=== PATIENT | female | born 1985 | race American Indian/Alaskan Native ===

== ENCOUNTER 2017-06-27 15:28 | Inpatient (IN) | payer MEDICAID ==
[2017-06-27 16:42] LABS: Hematocrit 36.6 % (30.3-42.9); Mean Corpuscular HGB Conc 33 % (30-34); Mean Corpuscular Hemoglobin 30 pg (28-32); Mean Corpuscular Volume 92 fl (79-97); Platelet Count 137 K/mm3 (140-440); Red Cell Distribution Width 13.8 % (13.2-15.2); White Blood Count 9.7 K/mm3 (4.5-11.0)
[2017-06-27] MEDS ORDERED: LACTATED RINGERS 1,000 ML IV SCH (17:00)
[2017-06-27 17:04] LABS: Alanine Aminotransferase 10 units/L (7-56); Lactate Dehydrogenase 221 units/L (91-180)
--- NOTE | 2017-06-27 18:16 | History and Physical Report ---
<SIDDHARTHLARRY L - Last Filed: 06/27/17 19:02> History of Present Illness Date of examination: 06/27/17 Chief complaint: elevated blood pressure and contractions, sent from office. History of present illness: EDC Calculations by LMP: 07/05/2017 Past History : 4 Term Births: 3 Premature Births: 0 Living Children: 3 Para: 3 Mult. Births: 0 Prev : 0 Prev. attempt? 0 Aborta: 0 Elect. Ab: 0 Spont. Ab: 0 Ectopics: 0 # 1 Delivery date: 09/03/2004 Weeks Gestation: 38 labor: no Delivery type: Hours of labor: 9 Anesthesia type: epidural Delivery location: [facility] Infant Sex: Female weight: 5-0 Name: Vivi # 2 Delivery date: 08/15/2006 Weeks Gestation: 39 labor: no Delivery type: Hours of labor: 10 Anesthesia type: none Delivery location: [facility] Infant Sex: Male weight: 6-3 Name: Manjinder # 3 Delivery date: 06/27/2008 Weeks Gestation: 40 labor: no Delivery type: Hours of labor: 6 Anesthesia type: none Delivery location: [facility] Sex: Male weight: 8-6 Name: Garrett Comments: induction of labor elevated BP Past Medical History: Negative Past Medical History Past Surgical History: Negative Past Surgical History Family History Summary: Other family member - Has No Family History of Ovarvian Cancer - Entered On: 12/20 Other family member - Has No Family History of Colon Cancer - Entered On: 2016 Other family member - Has No Family History of Breast Cancer - Entered On: 2016 Other family member - Has Family History of Hypertension - Entered On: 12/20/2016 Other family member - Has Family History of Diabetes - Entered On: 12/20/2016 Social History: Daycare Worker Patient is Risk Factors: Smoked Tobacco Use: Never smoker Drug use: no HIV high-risk behavior: low risk Alcohol use: yes Drinks per day: social Dietary Counseling: pn yes Past Medical History 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 of genital herpes: no Partner hx. of genital herpes: no Genetic History Congenital Heart Defect: Mom: no Dad: no Janeen Disease: Mom: no Dad: no Thalassemia Mom: no Dad: no Neural Tube Defect Mom: no Dad: no Down's Syndrome Mom: no Dad: no Kwasi-Sachs Mom: no Dad: no Sickle Cell Disease/Trait Mom: no Dad: no Hemophilia Mom: no Dad: no Muscular Dystrophy Mom: no Dad: no Cystic Fibrosis Mom: no Dad: no Ori Chorea Mom: no Dad: no Mental Retardation Mom: no Dad: no Fragile X Mom: no Dad: no Other Genetic/Chromosomal Disorder Mom: no Dad: no Child w/other defect Mom: no Dad: no Enviromental Exposures Xray Exposure: no Medication, drug, or alcohol use since LMP: no Chemical/Other Exposure: no Exposure to Cat Liter: no Hx of Parvovirus (Fifth Disease): no Occupational Exposure to Children: daycare Current Allergies: No known allergies Past History - Obstetrical History Expected Date of Delivery: 07/05/17 Actual Gestation: 38 Week(s) 6 Day(s) : 4 Para: 3 Hx # Term Pregnancies: 3 Number of Pregnancies: 0 Spontaneous Abortions: 0 Induced : 0 Number of Living Children: 3 Medications and Allergies Allergies Allergy/AdvReac Type Severity Reaction Status Date / Time No Known Allergies Allergy Unverified 06/27/17 16:02 Active Meds: Active Medications Lactated Ringer's (Lactated Ringers) 1,000 mls @ 125 mls/hr IV DIRECT MEAGHAN Review of Systems All systems: negative - Vital Signs Vital signs: Vital Signs Temp Pulse Resp BP Pulse Ox 98.2 F 72 20 160/93 98 06/27/17 16:44 06/27/17 16:44 06/27/17 16:44 06/27/17 16:44 06/27/17 16:44 Temp Pulse Resp BP Pulse Ox 98.2 F 71 20 161/91 92 06/27/17 16:44 06/27/17 18:00 06/27/17 16:44 06/27/17 17:57 06/27/17 18:00 - Physical Exam Breasts: Positive: normal Cardiovascular: Regular rate Lungs: Positive: Clear to auscultation, Normal air movement Abdomen: Positive: normal appearance, soft Genitourinary (Female): Positive: normal external genitalia, normal perenium Vulva: both: normal Vagina: Positive: normal moisture Uterus: Positive: normal size Adnexa: both: normal Anus/Rectum: Positive: normal perianal skin Extremities: Positive: normal Deep Tendon Reflex Grade: Normal +2 - Obstetrical FHR: auscultation normal, category 1 Uterine Contraction Monitor Mode: External Cervical Dilatation: 0.5 Cervical Effacement Percentage: 70 station: -4 Uterine Contraction Pattern: Irregular Uterine Tone Measurement Phase: Contraction Uterine Contraction Intensity: Mild Results Result Diagrams: 06/27/17 16:24 06/27/17 16:24 Abnormal lab results 06/27/17 06/27/17 Range/Units 16:24 16:24 Plt Count 137 L (140-440) K/mm3 Creatinine 0.5 L (0.7-1.2) mg/dL Lactate Dehydrogenase 221 H (91-180) units/L All other labs normal. Assessment and Plan 32 y/o @ 38+6 weeks, admitted for pre-e IOL. complicated by + AFP for DS, NIPT negative. GBS +, will treat when in labor. u/s ordered to confirm vertex. Dr. Murphy consulted. plan for cervical ripening tonight. plan discussed with patient and spouse and both verbalize understanding of plan. All questions addressed. - Patient Problems (1) 38 weeks gestation of Current Visit: Yes Status: Acute (2) GBS (group B Streptococcus carrier), +RV culture, currently Current Visit: Yes Status: Acute (3) Pre-eclampsia Onset Date: 06/27/17 Current Visit: Yes Status: Acute QualifierTitle: Trimester: third trimester Qualified Code(s): O14.93 - Unspecified pre-eclampsia, third trimester <BRICE MURPHY - Last Filed: 06/27/17 20:31> History of Present Illness Date of admission: 06/27/17 19:57 Medications and Allergies Active Meds: Active Medications Butorphanol Tartrate (Stadol) 2 mg IV Q2H PRN PRN Reason: Pain , Severe (7-10) Fentanyl (Sublimaze) 100 mcg IV Q2H PRN PRN Reason: Labor Pain Hydralazine HCl (Apresoline) 10 mg IV Q30MIN PRN PRN Reason: b/p >160/100 Ampicillin Sodium (Polycillin/Ns 2 Gm/100 Ml) 2 gm in 100 mls @ 100 mls/hr IV ONCE ONE PRN Reason: Protocol Stop: 06/27/17 20:29 Ampicillin Sodium (Polycillin/Ns 1 Gm/50 Ml) 1 gm in 50 mls @ 100 mls/hr IV Q4H MEAGHAN PRN Reason: Protocol Lactated Ringer's (Lactated Ringers) 1,000 mls @ 125 mls/hr IV DIRECT MEAGHAN Oxytocin/Sodium Chloride (Pitocin/Ns 20 Unit/1000ml Drip) 20 units in 1,000 mls @ 125 mls/hr IV DIRECT MEAGHAN Mineral Oil (Mineral Oil) 30 ml PO QHS PRN PRN Reason: Constipation Ondansetron HCl (Zofran) 4 mg IV Q8H PRN PRN Reason: Nausea And Vomiting Zolpidem Tartrate (Ambien) 10 mg PO QHS PRN PRN Reason: Insomnia - Vital Signs Vital signs: Vital Signs Temp Pulse Resp BP Pulse Ox 98.2 F 72 20 160/93 98 06/27/17 16:44 06/27/17 16:44 06/27/17 16:44 06/27/17 16:44 06/27/17 16:44 Temp Pulse Resp BP Pulse Ox 98.2 F 79 20 153/103 100 06/27/17 16:44 06/27/17 19:59 06/27/17 16:44 06/27/17 19:51 06/27/17 19:59 Results Result Diagrams: 06/27/17 16:24 06/27/17 16:24 Abnormal lab results 06/27/17 06/27/17 Range/Units 16:24 16:24 Plt Count 137 L (140-440) K/mm3 Creatinine 0.5 L (0.7-1.2) mg/dL Lactate Dehydrogenase 221 H (91-180) units/L All other labs normal. Assessment and Plan - Patient Problems (1) 38 weeks gestation of Current Visit: Yes Status: Acute (2) GBS (group B Streptococcus carrier), +RV culture, currently Current Visit: Yes Status: Acute (3) Pre-eclampsia Onset Date: 06/27/17 Current Visit: Yes Status: Acute Qualifiers: Trimester: third trimester Qualified Code(s): O14.93 - Unspecified pre- eclampsia, third trimester Plan to address problem: Preeclampsia, treatment, MgSo4 prophylaxis with risks discussed, serial induction explained. She voiced understanding and agrees with plan of care.
[2017-06-27 18:36] LABS: Bilirubin,Urine NEG (Negative); Blood,Urine NEG (Negative); Ketones,Urine NEG (Negative); Leukocyte Esterase,Urine NEG (Negative); Mucus,Urine FEW /HPF; Nitrite,Urine NEG (Negative); Protein,Urine <15 mg/dL mg/dL (Negative); Urobilinogen,Urine < 2.0 mg/dL (<2.0); WBC,Urine < 1.0 /HPF (0.0-6.0)
[2017-06-27] MEDS ORDERED: MINERAL OIL PO PRN (18:43)
[2017-06-27] MEDS ORDERED: ZOFRAN IV PRN (18:43)
[2017-06-27] MEDS ORDERED: AMBIEN PO PRN (18:46)
[2017-06-27] MEDS ORDERED: BRETHINE SUB-Q PRN (18:49)
[2017-06-27] MEDS ORDERED: ePHEDrine SULFATE IV PRN (18:49)
[2017-06-27] MEDS ORDERED: PITOCin/NS 20 UNIT/1000ML DRIP 20 UNITS/1,000 ML BAG IV SCH (19:00)
[2017-06-27] MEDS ORDERED: XYLOCAINE 2% INFILTRATI ONE (19:00)
[2017-06-27] MEDS ORDERED: POLYCILLIN/NS 2 GM/100 ML 2 GM/100 ML BAG IV ONE (19:30)
[2017-06-27] MEDS: LACTATED RINGERS 1,000 ML IV SCH (20:00)
[2017-06-27] MEDS: APRESOLINE IV PRN (20:41)
[2017-06-27] MEDS ORDERED: PITOCin/NS 30 UNIT/500ML 30 UNITS/500 ML BAG IV SCH (22:00)
[2017-06-27] MEDS ORDERED: POLYCILLIN/NS 1 GM/50 ML 1 GM/50 ML BAG IV SCH (22:44)
[2017-06-28] MEDS: APRESOLINE IV PRN ×2 (00:43→05:42)
[2017-06-28] MEDS ORDERED: TYLENOL PO ONE (03:59)
[2017-06-28] MEDS: STADOL IV PRN ×2 (06:03→09:46)
[2017-06-28] MEDS: LACTATED RINGERS 1,000 ML IV SCH (09:45)
--- NOTE | 2017-06-28 09:46 | Ultrasound Report ---
Gestation: Single Position: Cephalic Amniotic Fluid: ALONSO = cm Placenta: Anterior Placental Grade: 1 Heart Rate: 150 BPM
--- NOTE | 2017-06-28 09:49 | Event Note ---
Date: 06/28/17 32 yo now at 39w and 0 d and currently undergoing induction for poss PreE. Bps are ok, not on Mag at present. Having a good bit of pain despite contractions not picking up on monitor.. Attempted AROM--no fluid but large cx change--now tight 3cm, 90%,-2. Will start Amp now for +GBS and get epidural. Anticipate vag del today, EFW 7#.
[2017-06-28] MEDS ORDERED: POLYCILLIN/NS 2 GM/100 ML 2 GM/100 ML BAG IV ONE (09:55)
[2017-06-28] MEDS: SUBLIMAZE IV PRN ×2 (10:31→11:41)
[2017-06-28] MEDS ORDERED: fentaNYL-BUPIV 2 MCG/ML-0.125% 0 MCG/0 ML BAG EPIDURAL ONE (10:52)
--- NOTE | 2017-06-28 12:04 | Procedure Note ---
OB Delivery Note - Delivery Date of Delivery: 06/28/17 Surgeon: WHITLEY FUNEZ Project Executive: WHITLEY FUNEZ Estimated blood loss: 200cc - Vaginal Delivery presentation: vertex Delivery position: OA Intrapartum events: gestational hypertension Delivery induction: oxytocin Delivery augmentation: rupture of membranes Delivery monitor: external FHT, external uterine Route of delivery: Delivery placenta: spontaneous Delivery cord: 3 umbilical vessels Episiotomy: none Delivery laceration: none Anesthesia: intravenous - A at 1 minute: 8 at 5 minutes: 9 Infant Gender: Male (6#)
[2017-06-28] MEDS ORDERED: TUCKS PAD TP PRN (12:30)
[2017-06-28] MEDS ORDERED: BENADRYL PO PRN (12:30)
[2017-06-28] MEDS ORDERED: PHENERGAN PO PRN (12:30)
[2017-06-28] MEDS ORDERED: TYLENOL PO PRN (12:30)
[2017-06-28] MEDS ORDERED: LANSINOH TP PRN (12:30)
[2017-06-28] MEDS ORDERED: NORCO 5/325 PO PRN (12:30)
[2017-06-28] MEDS ORDERED: ZOFRAN IV PRN (12:30)
[2017-06-28] MEDS ORDERED: PITOCin/NS 20 UNIT/1000ML DRIP 20 UNITS/1,000 ML BAG IV SCH (13:00)
[2017-06-28] MEDS ORDERED: PHENERGAN PR PRN (13:00)
[2017-06-28] MEDS ORDERED: TORADOL IV PRN (13:00)
[2017-06-28] MEDS ORDERED: SODIUM CHLORIDE FLUSH SYRINGE 10 ML IV PRN (13:00)
[2017-06-28] MEDS: MOTRIN PO SCH ×2 (18:40→18:44)
[2017-06-28] MEDS ORDERED: MILK OF MAGNESIA PO PRN (22:00)
[2017-06-28] MEDS ORDERED: DULCOLAX PR PRN (22:00)
[2017-06-29] MEDS: MOTRIN PO SCH ×5 (00:07→19:07)
[2017-06-29 01:25] LABS: Hematocrit 31.3 % (30.3-42.9); Hemoglobin 10.4 gm/dl (10.1-14.3)
[2017-06-29] MEDS ORDERED: BOOSTRIX IM ONE (06:00)
--- NOTE | 2017-06-29 09:44 | Discharge Summary ---
Providers - Providers Date of Admission: 06/27/17 19:57 Date of discharge: 06/29/17 Attending physician: BRICE WILEY Primary care physician: BRICE WILEY Hospitalization Reason for admission: induction of labor (induction started at 38+6 for GHTN, never required Mag) Delivery: Episiotomy: none Laceration: none Other procedures: none complications: none Discharge diagnosis: IUP at term delivered [place] baby: male (6#4oz) Pertinent studies: Hct 33.5, O pos, GBS pos Hospital course: did well, del without epidural due to anes was tied up in c/s Condition at discharge: Good Disposition: DC-01 TO HOME OR SELFCARE - Discharge Diagnoses (1) Vaginal delivery Status: Acute (2) Gestational HTN Status: Acute Qualifiers: Trimester: third trimester Qualified Code(s): O13.3 - Gestational [ -induced] hypertension without significant proteinuria, third trimester Comment: not PreE Plan - Discharge Medications Prescriptions: Ibuprofen [Motrin 600 MG tab] 600 mg PO Q8H PRN #30 tablet PRN Reason: Pain Lidocain2.5%/Prilocai2.5% [Emla] 5 gm TP 1XW #1 tube - Provider Discharge Summary Activity: routine, no sex for 6 weeks Diet: routine Instructions: routine Additional instructions: [] Smoking cessation referral if applicable(refer to patient education folder for contact #) [] Refer to [facility]'s [facility] Booklet Call your doctor immediately for: * Fever > 100.5 * Heavy vaginal bleeding ( >1 pad per hour) * Severe persistent headache * Shortness of breath * Reddened, hot, painful area to leg or breast * Drainage or odor from incision. * Keep incision clean and dry at all times and follow doctor's instructions regarding bathing/showering - Follow up plan Follow up: BRICE WILEY MD [Primary Care Provider] - 7 Days
[2017-06-30] MEDS: MOTRIN PO SCH ×3 (00:24→12:13)
[2017-06-30 12:59] VITALS: BP 129/78
== END 2017-06-30 14:30 | disposition home or self-care (01) | DRG 774 ==
LOC: TRG 15:28 → LD 19:57 → OB 06-28 13:54
PROVIDERS: ADMIT Obstetrics & Gynecology; ATTEND Obstetrics & Gynecology
PROC: 10E0XZZ Delivery of Products of Conception, External Approach (ICD-10-PCS; principal; 2017-06-28)
PROC: 3E033VJ Introduction of Other Hormone into Peripheral Vein, Percutaneous Approach (ICD-10-PCS; 2017-06-28)
DX: O14.94 Unspecified pre-eclampsia, complicating childbirth (principal); O13.4 Gestational [pregnancy-induced] hypertension without significant proteinuria, complicating childbirth; O99.824 Streptococcus B carrier state complicating childbirth; Z3A.38 38 weeks gestation of pregnancy; Z37.0 Single live birth
CPT/HCPCS: 36415; 76815; 81001; 82565; 83615; 84450; 84460; 84550; 85014; 85018; 85027; 86592; 86850; 86900; 86901; 90471; 90715; 99211; G0463; J0290; J0360; J0595; J2590; J3010; J7120

== ENCOUNTER 2017-07-09 08:04 | Inpatient (IN) | payer MEDICAID ==
[2017-07-09] MEDS ORDERED: TYLENOL PO ONE (08:14)
[2017-07-09] MEDS ORDERED: NORMODYNE IV ONE ×2 (08:32→09:29)
[2017-07-09] MEDS ORDERED: MAGNESIUM SULFATE 2GM/50ML 2 GM/50 ML BAG IV ONE (08:33)
[2017-07-09 08:42] LABS: Basophils % (Auto) 0.8 % (0.0-1.8); Eosinophils % (Auto) 4.2 % (0.0-4.3); Hematocrit 43.9 % (30.3-42.9); Hemoglobin 14.4 gm/dl (10.1-14.3); Mean Corpuscular HGB Conc 33 % (30-34); Mean Corpuscular Hemoglobin 30 pg (28-32); Mean Corpuscular Volume 92 fl (79-97); Platelet Count 217 K/mm3 (140-440); Red Cell Distribution Width 13.3 % (13.2-15.2); White Blood Count 6.7 K/mm3 (4.5-11.0)
[2017-07-09 08:57] LABS: INR 0.95 (0.87-1.13)
[2017-07-09 08:58] LABS: Partial Thromboplastin Time 28.1 Sec. (24.2-36.6)
[2017-07-09 08:59] LABS: Creatine Kinase MB 1.8 ng/mL (0.0-4.0)
[2017-07-09 09:00] LABS: Creatine Kinase 118 units/L (30-135)
[2017-07-09] MEDS ORDERED: MAGNESIUM SULFATE 40GM/1000ML 40 GM/1,000 ML BAG IV SCH (09:00)
[2017-07-09] MEDS ORDERED: MAGNESIUM SULFATE 4GM/100ML 4 GM/100 ML BAG IV ONE (09:00)
[2017-07-09 09:01] LABS: Alanine Aminotransferase 17 units/L (7-56); Albumin 3.9 g/dL (3.9-5); Albumin/Globulin Ratio 1.1 %; Alkaline Phosphatase 89 units/L (35-129); Anion Gap 18 mmol/L; BUN/Creatinine Ratio 12.85; Blood Urea Nitrogen 9 mg/dL (7-17); Carbon Dioxide 22 mmol/L (22-30); Chloride 102.4 mmol/L (98-107); Glucose 89 mg/dL (65-100); Potassium 3.7 mmol/L (3.6-5.0); Sodium 139 mmol/L (137-145); Total Protein 7.5 g/dL (6.3-8.2)
--- NOTE | 2017-07-09 09:01 | History and Physical Report ---
History of Present Illness Date of examination: 07/09/17 (pt called this AM c/o MOSHER and dizziness Sent to ED ) Chief complaint: MOSHER and dizziness History of present illness: this is a 32yo with hx of gestational Htn that had IOL and delivered , vaginal w/o complications. Pt was discharged day 1 with normotensive BP. Called this AM with c/o MOSHER and dizziness. Due to pt's hx and her voiced c/o today sent to ED for evaluation Past History - Obstetrical History : 4 Para: 4 Number of Living Children: 4 Medications and Allergies Allergies Allergy/AdvReac Type Severity Reaction Status Date / Time No Known Allergies Allergy Unverified 06/27/17 16:02 Home Medications Medication Instructions Recorded Confirmed Last Taken Type ALBUTEROL Inhaler 2 puff IN PRN PRN 06/27/17 06/28/17 3 Weeks Ago History Ibuprofen [Motrin 600 MG tab] 600 mg PO Q8H PRN #30 tablet 06/28/17 Unknown Rx Lidocain2.5%/Prilocai2.5% [Emla] 5 gm TP 1XW #1 tube 06/28/17 Unknown Rx Active Meds: Active Medications Acetaminophen (Tylenol) 650 mg PO Q4H PRN PRN Reason: Pain MILD(1-3)/Fever >100.5/MOSHER Diphenhydramine HCl (Benadryl) 25 mg PO Q6H PRN PRN Reason: Itching Docusate Sodium (Colace) 100 mg PO Q12H PRN PRN Reason: Constipation Guaifenesin (Robitussin Dm) 10 ml PO Q6H PRN PRN Reason: Cough Magnesium Sulfate (Magnesium Sulfate 40gm/1000ml) 40 gm in 1,000 mls @ 25 mls/ hr IV DIRECT MEAGHAN PRN Reason: 1 GM/HR Magnesium Sulfate (Magnesium Sulfate 4gm/100ml) 4 gm in 100 mls @ 300 mls/hr IV ONCE.ED ONE Stop: 07/09/17 09:19 Lactated Ringer's (Lactated Ringers) 1,000 mls @ 125 mls/hr IV DIRECT MEAGHAN Multivitamins/Iron/Calcium ( Vitamin) 1 each PO QDAY MEAGHAN Ondansetron HCl (Zofran) 4 mg IV Q6H PRN PRN Reason: Nausea And Vomiting Simethicone (Mylicon) 80 mg PO Q6H PRN PRN Reason: Gas pain Sodium Chloride (Deep Sea) 2 spray NS Q4H PRN PRN Reason: Congestion Zolpidem Tartrate (Ambien) 10 mg PO ONCE PRN PRN Reason: Sleep - Vital Signs Vital signs: Vital Signs Temp Pulse BP Pulse Ox 98.5 F 80 164/116 98 07/09/17 08:07 07/09/17 08:07 07/09/17 08:07 07/09/17 08:07 Temp Pulse Resp BP Pulse Ox 98.1 F 78 16 145/111 100 07/09/17 08:30 07/09/17 08:40 07/09/17 08:30 07/09/17 08:40 07/09/17 08:30 - Physical Exam Breasts: Positive: Cardiovascular: Regular rate Lungs: Positive: Normal air movement Abdomen: Positive: normal appearance, soft Genitourinary (Female): Positive: normal external genitalia Vagina: Positive: normal moisture Extremities: Positive: edema Deep Tendon Reflex Grade: Normal but brisk +3 Results Result Diagrams: 07/09/17 08:31 07/09/17 08:31 Abnormal lab results 07/09/17 Range/Units 08:31 Hgb 14.4 H (10.1-14.3) gm/dl Hct 43.9 H (30.3-42.9) % Lymph % (Auto) 35.3 H (13.4-35.0) % All other labs normal. Assessment and Plan - Patient Problems (1) Headache Onset Date: ~07/08/17 Status: Acute Qualifiers: Headache type: H Headache chronicity pattern: acute headache Intractability: I Plan to address problem: Tylenol po CT scan of the head ordered by ED MD Monitor BP MGSO4 infusing; started in ED (2) Dizziness Onset Date: ~07/08/17 Status: Acute Plan to address problem: Admission to M/B for management of PreE (3) induced hypertension, Status: Acute Plan to address problem: Recieved call from Pt to be admitted for PreE. MGSO4 started in ED. notified of admission and agrees with POC. M/B Charge Nurse notified of admission.
--- NOTE | 2017-07-09 09:36 | Cat Scan Report ---
CT HEAD WITHOUT CONTRAST: HISTORY: Headache, preeclampsia. Serial contiguous axial images were obtained through the cranium. Intravenous contrast material was not administered. The ventricles are normal in size and appearance. There is no mass effect or midline shift. No areas of abnormally increased or decreased attenuation are seen. No mass lesion is seen. The mastoid air cells and visualized portions of the sinuses are normal. IMPRESSION: Cranial CT scan within normal limits.
--- NOTE | 2017-07-09 09:38 | XRay Report ---
AP CHEST: HISTORY: Hypertension AP view of the chest demonstrates a normal mediastinal and cardiac contour with clear lungs and normal bony and soft tissue structures. IMPRESSION: Unremarkable AP chest.
[2017-07-09 09:41] LABS: Urine Drugs of Abuse Note Disclamer
--- NOTE | 2017-07-09 09:47 | Emergency Department Report ---
ED General Adult HPI - General Chief complaint: Dizziness Stated complaint: HEADACHE/DIZZY Time Seen by Provider: 07/09/17 08:19 Source: patient Mode of arrival: Ambulatory Limitations: No Limitations - History of Present Illness Initial comments: The patient states that since 4 AM she is been feeling dizzy with a mild headache. She has had some vertigo. She states that she took her blood pressure at home and it was in the range of 145/95. She presented to this filled facility and was found to have a much elevated blood pressure. She is assumed to have preeclampsia as she is now some 9 days . She had induced hypertension which was largely . This required induction. She states that she was not given a prescription for antihypertensive medication before. She was not previously hypertensive In general or during other pregnancies. She has 4 children and 4 prior pregnancies. -: Gradual Location: head Radiation: non-radiation Quality: aching Consistency: intermittent Improves with: none Worsens with: none Associated Symptoms: weakness, other (dizziness and vertigo) Treatments Prior to Arrival: none - Related Data Home Medications Medication Instructions Recorded Confirmed Last Taken ALBUTEROL Inhaler 2 puff IN PRN PRN 06/27/17 06/28/17 3 Weeks Ago Previous Rx's Medication Instructions Recorded Last Taken Type Ibuprofen [Motrin 600 MG tab] 600 mg PO Q8H PRN #30 tablet 06/28/17 Unknown Rx Lidocain2.5%/Prilocai2.5% [Emla] 5 gm TP 1XW #1 tube 06/28/17 Unknown Rx Allergies Allergy/AdvReac Type Severity Reaction Status Date / Time No Known Allergies Allergy Unverified 06/27/17 16:02 ED Review of Systems ROS: Stated complaint: HEADACHE/DIZZY Other details as noted in HPI Constitutional: denies: chills, fever Eyes: denies: eye pain, eye discharge, vision change ENT: denies: ear pain, throat pain Respiratory: denies: cough, shortness of breath, wheezing Cardiovascular: denies: chest pain, palpitations Endocrine: no symptoms reported Gastrointestinal: denies: abdominal pain, nausea, diarrhea Genitourinary: denies: urgency, dysuria, discharge Musculoskeletal: denies: back pain, joint swelling, arthralgia Skin: denies: rash, lesions Neurological: headache, vertigo. denies: weakness, paresthesias Psychiatric: denies: anxiety, depression Hematological/Lymphatic: denies: easy bleeding, easy bruising ED Past Medical Hx - Past Medical History Hx Hypertension: No Hx Congestive Heart Failure: No Hx Diabetes: No Hx Deep Vein Thrombosis: No Hx Renal Disease: No Hx Sickle Cell Disease: No Hx Seizures: No Hx Asthma: No Hx COPD: No Hx HIV: No - Surgical History Past Surgical History?: No - Social History Smoking Status: Never Smoker Substance Use Type: None - Medications Home Medications: Home Medications Medication Instructions Recorded Confirmed Last Taken Type ALBUTEROL Inhaler 2 puff IN PRN PRN 06/27/17 06/28/17 3 Weeks Ago History Ibuprofen [Motrin 600 MG tab] 600 mg PO Q8H PRN #30 tablet 06/28/17 Unknown Rx Lidocain2.5%/Prilocai2.5% [Emla] 5 gm TP 1XW #1 tube 06/28/17 Unknown Rx ED Physical Exam - General Limitations: No Limitations General appearance: alert, in no apparent distress - Head Head exam: Present: atraumatic, normocephalic - Eye Eye exam: Present: normal appearance, PERRL, EOMI. Absent: scleral icterus - ENT ENT exam: Present: normal exam, mucous membranes moist - Neck Neck exam: Present: normal inspection - Respiratory Respiratory exam: Present: normal lung sounds bilaterally. Absent: respiratory distress - Cardiovascular Cardiovascular Exam: Present: regular rate, normal rhythm. Absent: systolic murmur, diastolic murmur, rubs, gallop - GI/Abdominal GI/Abdominal exam: Present: soft, normal bowel sounds. Absent: distended, tenderness, guarding, rebound, rigid - Extremities Exam Extremities exam: Present: normal inspection - Back Exam Back exam: Present: normal inspection - Neurological Exam Neurological exam: Present: alert, oriented X3, CN II-XII intact, reflexes normal, other (cerebellar testing was normal). Absent: motor sensory deficit - Psychiatric Psychiatric exam: Present: normal affect, normal mood - Skin Skin exam: Present: warm, dry, intact, normal color. Absent: rash ED Course Vital Signs 07/09/17 07/09/17 07/09/17 08:07 08:12 08:30 Temperature 98.5 F 98.5 F 98.1 F Pulse Rate 80 83 78 Respiratory 20 16 Rate Blood Pressure 164/116 Blood Pressure 164/116 174/98 [Right] O2 Sat by Pulse 98 99 100 Oximetry 07/09/17 07/09/17 07/09/17 08:40 09:25 09:38 Temperature Pulse Rate 78 84 84 Respiratory 16 Rate Blood Pressure 145/111 168/108 Blood Pressure 168/108 [Right] O2 Sat by Pulse 100 Oximetry 07/09/17 09:43 Temperature Pulse Rate 84 Respiratory 16 Rate Blood Pressure Blood Pressure 159/110 [Right] O2 Sat by Pulse 100 Oximetry - Reevaluation(s) Reevaluation #1: Patient is treated with mini bolus labetalol. She was given magnesium 4 mg loading and 1 mg an hour drip. I discussed this plan with Blanche the nurse practitioner for a [facility] who was in agreement. She placed orders for continued care on mother baby. Patient remains in stable condition and will be transferred when bed is available. 07/09/17 09:48 ED Medical Decision Making - Lab Data Result diagrams: 07/09/17 08:31 07/09/17 08:31 Laboratory Results - last 24 hr 07/09/17 07/09/17 07/09/17 08:31 08:31 08:31 WBC 6.7 RBC 4.80 Hgb 14.4 H Hct 43.9 H MCV 92 MCH 30 MCHC 33 RDW 13.3 Plt Count 217 Lymph % (Auto) 35.3 H [place] % (Auto) 6.8 Eos % (Auto) 4.2 Baso % (Auto) 0.8 Lymph # 2.4 [place] # 0.5 Eos # 0.3 Baso # 0.1 Seg Neutrophils % 52.9 Seg Neutrophils # 3.5 PT 13.2 INR 0.95 APTT 28.1 Sodium 139 Potassium 3.7 Chloride 102.4 Carbon Dioxide 22 Anion Gap 18 BUN 9 Creatinine 0.7 Estimated GFR > 60 BUN/Creatinine Ratio 12.85 Glucose 89 Calcium 9.0 Magnesium Total Bilirubin 0.40 AST 19 ALT 17 Alkaline Phosphatase 89 Total Creatine Kinase CK-MB (CK-2) CK-MB (CK-2) Rel Index Troponin T NT-Pro-B Natriuret Pep Total Protein 7.5 Albumin 3.9 Albumin/Globulin Ratio 1.1 07/09/17 08:31 WBC RBC Hgb Hct MCV MCH MCHC RDW Plt Count Lymph % (Auto) [place] % (Auto) Eos % (Auto) Baso % (Auto) Lymph # [place] # Eos # Baso # Seg Neutrophils % Seg Neutrophils # PT INR APTT Sodium Potassium Chloride Carbon Dioxide Anion Gap BUN Creatinine Estimated GFR BUN/Creatinine Ratio Glucose Calcium Magnesium 2.10 Total Bilirubin AST ALT Alkaline Phosphatase Total Creatine Kinase 118 CK-MB (CK-2) 1.8 CK-MB (CK-2) Rel Index 1.5 Troponin T < 0.010 NT-Pro-B Natriuret Pep 138.5 Total Protein Albumin Albumin/Globulin Ratio - EKG Data -: EKG Interpreted by Me EKG shows normal: sinus rhythm Rate: normal - EKG Data Interpretation: other (1 PVC suggest left atrial enlargement. Nonspecific changes. Prolonged QTC.) - Radiology Data interpreted by me: Chest x-ray no acute process CT the head normal per radiologist Critical Care Time: Yes Critical care time in (mins) excluding proc time.: 40 Critical care attestation.: If time is entered above; I have spent that time in minutes in the direct care of this critically ill patient, excluding procedure time. ED Disposition Clinical Impression: Preeclampsia in period Disposition: 09 OP ADMIT IP TO THIS HOSP Is pt being admited?: Yes Does the pt Need Aspirin: Yes Condition: Stable Time of Disposition: 09:52
[2017-07-09 09:55] LABS: Bilirubin,Urine NEG (Negative); Blood,Urine LG (Negative); Ketones,Urine NEG (Negative); Leukocyte Esterase,Urine MOD (Negative); Mucus,Urine FEW /HPF; Nitrite,Urine NEG (Negative); Protein,Urine <15 mg/dL mg/dL (Negative); Urobilinogen,Urine < 2.0 mg/dL (<2.0)
[2017-07-09] MEDS ORDERED: PRENATAL VITAMIN PO SCH (10:00)
[2017-07-09] MEDS ORDERED: BENADRYL PO PRN (10:00)
[2017-07-09] MEDS ORDERED: ZOFRAN IV PRN (10:00)
[2017-07-09] MEDS ORDERED: TYLENOL PO PRN (10:00)
[2017-07-09] MEDS ORDERED: MYLICON PO PRN (10:00)
[2017-07-09] MEDS ORDERED: COLACE PO PRN (10:00)
[2017-07-09] MEDS ORDERED: ROBITUSSIN DM PO PRN (10:00)
[2017-07-09] MEDS ORDERED: DEEP SEA NS PRN (10:00)
[2017-07-09] MEDS ORDERED: AMBIEN PO PRN (10:00)
[2017-07-09] MEDS: LACTATED RINGERS 1,000 ML IV SCH (10:15)
[2017-07-09] MEDS: MAGNESIUM SULFATE 40GM/1000ML 40 GM/1,000 ML BAG IV SCH (12:30)
[2017-07-09] MEDS ORDERED: APRESOLINE IV PRN (12:33)
--- NOTE | 2017-07-09 13:08 | Event Note ---
Date: 07/09/17 (Pt refusing barreto States MOSHER is better) Pt in good spirits Only negative is absolute refusal of barreto cath. Explained that MGSO4 is toxic and that we do need to watch her urine output carefully. Pt understands if her out put is decreased we will need the cath to accurately assess her output. BP 180-170/100s Apresoline ordered with parameters. Labetalol 200mg po BID start now. MGSO4 @ 2GM/Hr. Mag levels ordered. made aware of pt. Pt voiced understanding of POC. She is to report any worsening MOSHER, blurred vision, chest pain. Call for assistance when getting OOB.
[2017-07-09] MEDS: NORMODYNE PO SCH ×2 (14:45→22:19)
[2017-07-09] MEDS ORDERED: TYLENOL #3 PO PRN (21:03)
[2017-07-10] MEDS: LACTATED RINGERS 1,000 ML IV SCH (00:25)
[2017-07-10] MEDS: MAGNESIUM SULFATE 40GM/1000ML 40 GM/1,000 ML BAG IV SCH (06:35)
--- NOTE | 2017-07-10 08:14 | Progress Note ---
Assessment and Plan - Patient Problems (1) Headache Onset Date: ~07/08/17 Current Visit: Yes Status: Acute Qualifiers: Headache type: H Headache chronicity pattern: acute headache Intractability: I Plan to address problem: pt states her MOSHER is much better "It is just slight" (2) Dizziness Onset Date: ~07/08/17 Current Visit: Yes Status: Acute Plan to address problem: resolved Pt denies any dizziness (3) induced hypertension, Current Visit: Yes Status: Acute Plan to address problem: Pt resting quietly No c/o voiced BPs 120-130/70 MGSO4 @ 2gm/hr to be completed @ 1230 DTRs wnl minimal edema LE P: complete MGSO4 therapy; continue Labetalol po; consulted with . Pt has requested d/c today if poss Will plan to monitor all day with poss d/c @ 1900 Subjective - Subjective Date of service: 07/10/17 (pt states she is feeling much better) Principal diagnosis: PreE; MGSO4 @ 2gm/hr Interval history: this is a 32yo with hx of gestational Htn that had IOL and delivered , vaginal w/o complications. Pt was discharged day 1 with normotensive BP. Called this AM with c/o MOSHER and dizziness. Due to pt's hx and her voiced c/o today sent to ED for evaluation Patient reports: appetite normal, voiding normally, pain well controlled, ambulating normally Objective - Vital Signs Latest vital signs: Vital Signs Temp Pulse Resp BP BP Pulse Ox 07/10/17 06:00 98.6 F 69 16 121/77 07/10/17 04:00 98.6 F 73 16 115/67 07/10/17 01:50 88 18 130/80 07/10/17 00:00 98.6 F 71 16 154/99 07/09/17 22:19 88 130/71 07/09/17 22:00 98.6 F 73 16 135/81 07/09/17 21:28 16 07/09/17 20:00 90 16 131/71 07/09/17 19:41 18 07/09/17 18:20 98.1 F 88 18 144/87 07/09/17 16:13 98.4 F 70 18 140/94 07/09/17 15:15 98.2 F 76 20 144/84 07/09/17 12:45 98.2 F 86 20 141/81 07/09/17 12:40 97.9 F 86 20 147/88 07/09/17 12:35 98.1 F 81 20 156/91 07/09/17 09:50 98.4 F 76 20 184/107 07/09/17 09:43 84 16 159/110 100 07/09/17 09:38 84 168/108 07/09/17 09:25 84 16 168/108 100 Intake and Output 07/09/17 07/10/17 07/10/17 22:59 06:59 14:59 Intake Total 2530 1150 Output Total 750 Balance 1780 1150 Intake: IV 1500 Lactated Ringers 1,000 ml 1300 @ 125 mls/hr IV DIRECT MEAGHAN Rx#:[id number] MAGNESIUM SULFATE 40GM/ 200 1000ML 40 gm In 1,000 ml @ 2 GM/HR 50 mls/hr IV DIRECT MEAGHAN Rx#:[id number] Oral 730 250 Intake, Free Water 300 900 Output: Urine 750 Void 750 Other: Total, Intake Amount 250 250 Total, Output Amount 750 Voiding Method Toilet - Exam Lungs: Present: Normal air movement Abdomen: Present: normal appearance, soft, normal bowel sounds Extremities: Present: edema Deep Tendon Reflex Grade: Normal +2 - Labs Labs: Abnormal lab results 07/09/17 07/09/17 07/09/17 Range/Units 09:25 15:21 20:41 Magnesium 4.50 H 5.60 H (1.7-2.3) mg/dL Urine WBC (Auto) 21.0 H (0.0-6.0) /HPF
[2017-07-10] MEDS: NORMODYNE PO SCH (12:00)
[2017-07-10 20:35] VITALS: BP 134/73
--- NOTE | 2017-07-10 20:52 | Discharge Summary ---
Providers - Providers Date of Admission: 07/09/17 08:47 Date of discharge: 07/10/17 (pt d/c home Will make appt to [facility]TO in 1 week for BP check) Attending physician: ISAIAH BARRAGAN Primary care physician: [employer] Hospitalization Reason for admission: PP elevated blood pressure Condition: Good Hospital course: treatment for PreE Pt responded well to MGSO4 BPs now normotensive Disposition: DC-01 TO HOME OR SELFCARE - Discharge Diagnoses (1) Headache Status: Resolved Qualifiers: Headache type: H Headache chronicity pattern: acute headache Intractability: I Comment: pt will call if MOSHER returns and does not respond to Tylenol or Motrin (2) Dizziness Status: Acute (3) induced hypertension, Status: Acute Comment: d/c home with RX for Labetalol RTO 1 week for BP check Will call with MOSHER, blurred vision, chest pain Core Measure Documentation - Palliative Care Palliative Care/ Comfort Measures: Not Applicable - Core Measures Any of the following diagnoses?: none - VTE Discharge Requirements Deep Vein Thrombosis/Pulmonary Embolism Present on Admission: No Has pt received <5 days of overlap therapy or INR<2.0: No Anticoagulant overlap therapy prescribed at discharge: No Contraindication No Overlap Therapy order at DC: Not Indicated - Acute [place] Discharge Requirements Aspirin at discharge: No Reason for no aspirin on DC: Medical contraindication FAISAL/ARB for LVSD if EF <40%: Not Applicable Reason for no FAISAL/ARB: Medical contraindication Beta julio cesar at discharge: No Reason for no beta julio cesar on DC: Medical contraindication Statin for LDL = or >100 mg/dl on DC: Not Applicable Reason for no statin on DC: Medical contraindication - Heart Failure Discharge Requirements FAISAL/ARB for LVSD if EF <40%: Not Applicable Beta julio cesar at discharge: No Reason for no beta julio cesar on DC: Medical contraindication - Stroke Discharge Requirements Statin for LDL = or >70 mg/dl on DC: Not Applicable Anticoag for atrial fib/atrial flutter: Not Applicable Antithrombotic for ischemic stroke: No Reason for no antithrombotic on DC: Medical Contraindication Exam - Constitutional Vitals: Temp Pulse Resp BP Pulse Ox 98.9 F 80 20 134/73 100 07/10/17 20:00 07/10/17 20:00 07/10/17 20:00 07/10/17 20:00 07/09/17 09:43 General appearance: Present: no acute distress, well-nourished - EENT Eyes: Present: PERRL ENT: hearing intact, clear oral mucosa - Neck Neck: Present: supple, normal ROM - Respiratory Respiratory effort: normal Respiratory: bilateral: CTA - Cardiovascular Heart Sounds: Present: S1 & S2. Absent: rub, click - Extremities Extremities: pulses symmetrical, No edema Peripheral Pulses: within normal limits - Abdominal General gastrointestinal: Present: soft, non-tender, non-distended, normal bowel sounds Female genitourinary: Present: normal - Rectal Rectal Exam: deferred - Integumentary Integumentary: Present: clear, warm, dry - Musculoskeletal Musculoskeletal: gait normal, strength equal bilaterally - Psychiatric Psychiatric: appropriate mood/affect, intact judgment & insight - Neurologic Neurologic: CNII-XII intact, moves all extremities Plan Activity: no restrictions Weight Bearing Status: Full Weight Bearing Diet: low salt Special Instructions: record daily BP diary Follow up with: PRIMARY CARE, [Primary Care Provider] - 7 Days FLO ZARAGOZA CNM [Advanced Practice Nurse] - 7 Days (please call [phone] to schedule your appointment in 1 week Call with any concerns Take Labetalol as instructed) Prescriptions: Labetalol [Normodyne TAB] 200 mg PO BID #60 tablet
== END 2017-07-10 21:20 | disposition home or self-care (01) | DRG 776 ==
LOC: ED 08:04 → OB 08:47
PROVIDERS: ADMIT Obstetrics & Gynecology; ATTEND Obstetrics & Gynecology
DX: O13.5 Gestational [pregnancy-induced] hypertension without significant proteinuria, complicating the puerperium (principal); O90.89 Other complications of the puerperium, not elsewhere classified; R42 Dizziness and giddiness
CPT/HCPCS: 36415; 51702; 70450; 71010; 80053; 80307; 81001; 82550; 82553; 83735; 83880; 84484; 85025; 85610; 85730; 93005; 93010; 96365; 96375; 96376; J0360; J3475; J7120